=== PATIENT | female | born 1950 | race Caucasian/White ===

== ENCOUNTER 2023-01-19 11:51 | Emergency (ER) | payer SELFPAY ==
[~2023-01-19] VITALS: Ht 167.6 cm; Wt 72.0 kg
[2023-01-19 13:37] VITALS: BP 93/63
--- NOTE | 2023-01-19 14:12 | NUR ---
[facility] CALLED REGARDING PT'S INCREASE IN HER SERIQUIL. STAFF STATES THAT SHE WAS TAKING SERIQUIL 25MG BID AND IT WAS INCREASD TO 50MG BID STARTING TODAY. STAFF WAS ALSO ASKED WHAT IS HER BASELINE MENTATION WAS. STAFF STATES THAT PT HAS DEMENTIA, RESPONDS TO HER NAME AND ANSWERED IN 1-2 WORD SENTENCES MOST OF THE TIME. STAFF WAS INFORMED THAT SHE WAS IN A ROOM AND THE PROVIDER SEEN HER. WHILE ON THE EMS [facility] PT WAS SLEEPING. DR ORTIZ NOTIFIED OF CONVERSATION WITH [facility] STAFF
[2023-01-19 14:20] LABS: BASOPHILS # (AUTO) 0.1 X10'3 (0-0.2); BASOPHILS % (AUTO) 1.2 % (0-1); EOSINOPHILS # (AUTO) 0.2 X10'3 (0-0.9); EOSINOPHILS % (AUTO) 2.3 % (0-6); HEMOGLOBIN 12.4 g/dl (12.0-16.0); LYMPHOCYTES # (AUTO) 0.8 X10'3 (1.1-4.8); LYMPHOCYTES % (AUTO) 11.4 % (21-51); MEAN CORPUSCULAR HEMOGLOBIN 31.5 PG (27.0-31.0); MEAN CORPUSCULAR HGB CONC 32.7 g/dL (33.0-36.5); MEAN CORPUSCULAR VOLUME 96.2 FL (78-98); MEAN PLATELET VOLUME 8.1 FL (7.4-10.4); MONOCYTES # (AUTO) 0.4 X10'3 (0-0.9); MONOCYTES % (AUTO) 6.2 % (2-12); NEUTROPHILS # (AUTO) 5.5 X10'3 (1.8-7.7); NEUTROPHILS % (AUTO) 78.9 % (42-75); PLATELET COUNT 397 X10'3 (140-440); RED BLOOD COUNT 3.95 X10'6 (4.20-5.60); RED CELL DISTRIBUTION WIDTH 16.1 % (11.5-14.5); WHITE BLOOD COUNT 6.9 X10'3 (4.5-11.0)
[2023-01-19 14:31] LABS: ALANINE AMINOTRANSFERASE 14 U/L (12-78); ALBUMIN 3.2 G/DL (3.4-5.0); ALKALINE PHOSPHATASE 60 IU/L (46-116); ANION GAP 8 (8-16); ASPARTATE AMINO TRANSFERASE 13 U/L (10-37); BILIRUBIN,TOTAL 0.2 MG/DL (0.1-1.0); BLOOD UREA NITROGEN 19 MG/DL (7-18); BUN/CREATININE RATIO 19.8 (6.6-38.0); CHLORIDE 106 MMOL/L (99-107); CREATININE 0.96 MG/DL (0.40-0.90); GLUCOSE 104 MG/DL (70-104); POTASSIUM 3.9 MMOL/L (3.5-5.1); SODIUM 141 MMOL/L (135-145); TOTAL CARBON DIOXIDE 27.2 MMOL/L (24-32); TOTAL PROTEIN 6.3 G/DL (6.4-8.2); eGFR 57 ML/MIN
--- NOTE | 2023-01-19 15:31 | NUR ---
PT'S CT RESULTED IN MILD TO MODERATE HYDROCEPHALIOUS. PROVIDER ASKED TO CALL PT'S FACILITY FOR HX OF KNOW HYDROCEPHALOUS. [facility] CALLED AND ONLY NOTE IN PT'S CHART WAS FOR DX OF DEMENTIA. DR ORTIZ NOTIFIED
[2023-01-19 16:24] LABS: CLARITY,URINE CLEAR (Clear); COLOR,URINE STRAW (Yellow); GLUCOSE, URINE NEGATIVE (Neg); KETONES,URINE NEGATIVE (Neg); LEUKOCYTE ESTERASE ,URINE NEGATIVE (Neg); NITRITES, URINE NEGATIVE (Neg); OCCULT BLOOD,URINE TRACE-INTACT (Neg); PROTEIN,URINE NEGATIVE (Neg); UROBILINOGEN,URINE 0.2 E.U/dL (0.2-1.0)
[2023-01-19 16:25] LABS: UA COLLECTION TYPE STRAIGHT CATH
[2023-01-19 16:29] LABS: BACTERIA,URINE FEW /HPF (Neg); HYALINE CASTS 0-3 /LPF (NEGATIVE); MUCUS STRANDS NONE SEEN /LPF (Neg); RBC,URINE 0-2 /HPF (0-2); SQUAMOUS EPITHELIAL CELL,UR NONE SEEN /LPF (FEW); WBC,URINE 0-4 /HPF (0-4)
== END 2023-01-19 19:22 | disposition home or self-care (01) ==
LOC: ER 11:51
DX: G91.9 Hydrocephalus, unspecified (principal); K21.9 Gastro-esophageal reflux disease without esophagitis; F03.90 Unspecified dementia, unspecified severity, without behavioral disturbance, psychotic disturbance, mood disturbance, and anxiety
CPT/HCPCS: 36415; 70450; 71045; 80053; 81001; 83880; 84484; 85025; 93005; 99285